=== PATIENT | female | born 1960 | race Caucasian/White ===

== ENCOUNTER 2018-06-03 15:16 | Observation (INO) | payer OTHER ==
[~2018-06-03] VITALS: Ht 170.2 cm; Wt 59.0 kg
[~2018-06-03 15:16] MED LIST: ACETAMINOPHEN-1 EAC1 PO; AUGMENTIN 875875 MG PO; CIPRO500 MG PO; CIPROFLOXACIN500 M1 PO; CIPROFLOXACIN500 M3 PO; CLEOCIN HCL150 M1 PO; CLEOCIN HCL150 MG PO; CLONAZEPAM 1 MG1 M1 NG; CYCLOBENZAPRINE; DESYREL; FLAGYL500 MG PO; HYDROCODONE-AP1 EAC6 PO; INDERAL LA120 MG PO; NOHOMEMEDICATIONS; NORCO 5-325 TA1 EAC1 PO; NORCO 5-325 TA1 EACH PO; NYSTATIN 100,0015 G1 TP; PENICILLIN V P500 MG PO; PROTONIX40 MG PO; SENNA-DOCUSATE1 EACH PO; SEROQUEL 25 MG25 MG PO; TRAMADOL 50 MG50 MG PO; ZANTAC; ZOFRAN 4 MG ORAL4 M1 DIS; ZOFRAN ODT4 MG PO; ZOLOFT
[2018-06-03 15:20] VITALS: BP 141/97
[2018-06-03 15:43] LABS: ABSOLUTE EOSINOPHILS 0.1 thou/uL (0.0-0.7); ABSOLUTE LYMPHOCYTES 2.1 thou/uL (0.8-5.3); ABSOLUTE MONOCYTES 1.1 thou/uL (0.0-1.2); ABSOLUTE NEUTROPHILS 12.4 thou/uL (1.6-8.1); BASOPHILS 0.3 %; EOSINOPHILS 0.8 %; HEMATOCRIT 34.3 % (37.0-47.0); HEMOGLOBIN 11.3 gm/dL (12.0-15.0); LYMPHOCYTES 13.3 %; MCH 29.7 pg (26.0-34.0); MCHC 33.1 g/dL (28.0-37.0); MCV 89.8 fL (80.0-100.0); MONOCYTES 6.9 %; MPV 7.4 fl. (7.2-11.1); NUCLEATED RBCS 0 /100WBC; PLATELET COUNT* 604 thou/uL (150-400); POLYS 78.7 %; RBC 3.82 mil/uL (4.20-5.00); RDW-CV 13.7 % (10.5-14.5); WBC 15.7 thou/uL (4.0-11.0)
[2018-06-03 15:54] LABS: ANION GAP 8 mmol/L (7-16); BUN 14 mg/dL (7-18); CALCIUM 8.4 mg/dL (8.5-10.1); CHLORIDE 96 mmol/L (98-107); CO2 29 mmol/L (21-32); GLUCOSE 110 mg/dL (70-99); POTASSIUM 3.9 mmol/L (3.5-5.1); SODIUM 133 mmol/L (136-145)
[2018-06-03 16:04] LABS: ALBUMIN 3.5 g/dL (3.4-5.0); ALKALINE PHOSPHATASE 139 U/L (46-116); LIPASE 90 U/L (73-393); MAGNESIUM 2.1 mg/dL (1.8-2.4); NT-PRO BRAIN NAT PEPTIDE 1101 pg/mL (<300); SGOT 57 U/L (15-37); SGPT 43 U/L (30-65); TOTAL BILIRUBIN 0.5 mg/dL (<0.1-1.0); TOTAL PROTEIN 8.2 g/dL (6.4-8.2); TROPONIN-I LEVEL <0.06 ng/mL (<0.06)
--- NOTE | 2018-06-03 18:01 | EKG ---
[place] [address] ELECTROCARDIOGRAM REPORT Name: NERY QUINONEZ Room: [place] [address] ADM IN [facility].#: [id number] Admission: 06/03/18 Attend Phys: Miguel Echeverria MD Discharge: Date of : 60 Report #: [id number] THIS REPORT FOR: //name// 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1960 Requested By: Neri Smith Order Number: [id number] MD: See Mandujano Measurements Intervals [place] Rate: 98 P: 71 IN: 154 QRS: 55 QRSD: 81 T: -45 QT: 350 QTc: 447 Interpretive Statements Sinus rhythm Borderline T abnormalities, diffuse leads Compared to ECG 07/24/2015 11:21:04 Prolonged QT interval no longer present T-wave abnormality still present Electronically Signed On 06-03-2018 18:00:44 CDT by See Mandujano [email or web address] <ELECTRONICALLY SIGNED> By: See Mandujano MD, FACC 06/03/18 1800 1520 1520 See Mandujano MD, [facility] /EPI
[2018-06-03 18:38] VITALS: BP 106/74
[2018-06-03 18:40] VITALS: BP 106/74
[2018-06-03 19:22] LABS: % SATURATION 10 % (20-39); IRON 21 ug/dL (50-175)
[2018-06-03 20:00] VITALS: BP 94/60
[2018-06-04] VITALS: BP 91/45
[2018-06-04 04:00] VITALS: BP 100/56
[2018-06-04 04:39] LABS: ABSOLUTE EOSINOPHILS 0.3 thou/uL (0.0-0.7); ABSOLUTE LYMPHOCYTES 1.6 thou/uL (0.8-5.3); BASOPHILS 0.2 %; EOSINOPHILS 1.8 %; HEMOGLOBIN 9.6 gm/dL (12.0-15.0); MCH 29.7 pg (26.0-34.0); MCHC 33.2 g/dL (28.0-37.0); MCV 89.5 fL (80.0-100.0); MONOCYTES 6.8 %; MPV 7.6 fl. (7.2-11.1); NUCLEATED RBCS 0 /100WBC; POLYS 80.2 %; RBC 3.24 mil/uL (4.20-5.00); RDW-CV 13.6 % (10.5-14.5); WBC 14.9 thou/uL (4.0-11.0)
[2018-06-04 04:41] LABS: PLATELET COUNT* 464 thou/uL (150-400)
[2018-06-04 05:44] LABS: CALCIUM 7.9 mg/dL (8.5-10.1); CREATININE 1.1 mg/dL (0.6-1.3); POTASSIUM 4.4 mmol/L (3.5-5.1)
--- NOTE | 2018-06-04 05:45 | NUR ---
PT COMPLAINS OF PAIN IN CHEST, GIVEN MEDICATIONS WITH PARTIAL RELIEF NOTED. PT REPORTED NAUSEA GIVEN MEDICATION RELIEF NOTED. PT SR ON THE MONTIOR. ADLIB. VITALS WNL. SEE MAR. SEE CHARTING. HOURLY ROUNDING FOR SAFETY.
[2018-06-04] MEDS ORDERED: COLCHICINE0.6 MG PO (08:14)
[2018-06-04] MEDS ORDERED: PEPCID20 MG PO (08:14)
[2018-06-04] MEDS ORDERED: IBUPROFEN 200200 M1 PO (08:14)
[2018-06-04 08:33] VITALS: BP 109/66
--- NOTE | 2018-06-04 10:52 | NUR ---
ASSUMED PT CARE AT 0730, MARY ANN WONG DONE CHARTED. PT A/O X4, IS VERY ANXIOUS AND FRUSTRAITED THAT HER PAIN IS NOT WELL CONTROLLED, PT NPO THIS AM FOR ABDOMINAL CT, SHE IS NOT HAPPY WITH THIS. PT C/O PAIN IN CHEST AND LEFT SHOULDER. PAIN MEDS GIVEN PER DEC. PT UP AD MARY ELLEN IN ROOM. MAY DC HOME TODAY PENDING TEST RESULTS. WILL CONTINUE TO MONITOR.
[2018-06-04] MEDS ORDERED: NORCO 7.5-3251 EACH PO (11:39)
[2018-06-04 11:42] VITALS: BP 109/66
[2018-06-04 11:56] VITALS: BP 113/79
--- NOTE | 2018-06-04 14:54 | NUR ---
Pt asleep when CM went to assess, will f/u later
--- NOTE | 2018-06-04 15:44 | 2DMMODE ---
[place] [address] 2 D/M-MODE ECHOCARDIOGRAM Name: NERY QUINONEZ Room: [address] Gavin#: [id number] Admission: 06/03/18 Attend Phys: Miguel Echeverria, Discharge: Date of : 60 Date of Service: 06/04/18 1544 Report #: [id number] THIS REPORT FOR: //name// APPROVED REPORT Study performed: 06/04/2018 10:33:23 EXAM: Comprehensive 2D, Doppler, and color-flow Echocardiogram Patient Location: In-Patient Room #: 222 Status: routine BSA: 1.69 HR: 77 bpm BP: 109/66 mmHg Rhythm: NSR Other Information Study Quality: Good Indications Pericardial Effusion 2D Dimensions LVEF(%): 63.92 (>50%) IVSd: 8.06 (7-11mm) LVOT Diam: 19.21 (18-24mm) LVDd: 33.60 mm PWd: 9.26 (7-11mm) Ascending Ao: 26.00 (22-36mm) LVDs: 22.23 (25-40mm) Aortic Root: 25.87 mm Nassar's LVEF: 63.92 % Volumes Left Atrial Volume (Systole) LA ESV Index: 20.50 mL/m2 Aortic Valve AoV Peak Jamarcus.: 1.43 m/s AO Peak Gr.: 8.23 mmHg LVOT Max P.27 mmHg AO Mean Gr.: 4.71 mmHg LVOT Mean P.16 mmHg LVOT Max V: 0.75 m/s AO V2 VTI: 27.21 cm LVOT Mean V: 0.50 m/s LETICIA (VTI): 1.82 cm2 LVOT V1 VTI: 17.12 cm AI Anderson: 2.59 m/s2 AI PHT: 437.35 [place] [address] 2 D/M-MODE ECHOCARDIOGRAM Name: CRISTIANO,NERY A Room: [address]#: [id number] Admission: 06/03/18 Attend Phys: Miguel Echeverria, Discharge: Date of : 60 Date of Service: 06/04/18 1544 Report #: [id number] Mitral Valve E/A Ratio: 1.08 MV Decel. Time: 244.57 ms MV E Max Jamarcus.: 1.16 m/s MV PHT: 70.93 ms MVA (PHT): 3.10 cm2 TDI E/Lateral E': 10.55 E/Medial E': 10.55 Medial E' Jamarcus.: 0.11 m/s Lateral E' Jamarcus.: 0.11 m/s Pulmonary Valve PV Peak Jamarcus.: 0.70 m/s PV Peak Gr.: 1.98 mmHg Tricuspid Valve RAP Estimate: 10.00 mmHg TR Peak Gr.: 20.11 mmHg RVSP: 30.11 mmHg PA Pressure: 30.11 mmHg Left Ventricle The left ventricle is normal size. There is normal LV segmental wall motion. There is normal left ventricular wall thickness. Left ventricular systolic function is normal. The left ventricular ejection fraction is within the normal range. LVEF is 60-65%. The left ventricular diastolic function is normal. Right Ventricle The right ventricle is normal size. The right ventricular systolic function is normal. Atria The left atrium size is normal. The right atrium size is normal. Aortic Valve Mild aortic valve sclerosis. Mild aortic regurgitation. No hemodynamically significant valvular aortic stenosis. Mitral Valve The mitral valve is normal in structure. Mild mitral regurgitation. No evidence of mitral valve stenosis. Tricuspid Valve The tricuspid valve is normal in structure. Mild tricuspid [place] [address] 2 D/M-MODE ECHOCARDIOGRAM Name: NERY QUINONEZ Room: [address] MKimmyRKimmy#: [id number] Admission: 06/03/18 Attend Phys: Miguel Echeverria, Discharge: Date of : 60 Date of Service: 06/04/18 1544 Report #: [id number] Pulmonic Valve The pulmonary valve is normal in structure. There is no pulmonic valvular regurgitation. Great Vessels The aortic root is normal in size. IVC is normal in size and collapses <50% with inspiration. Pericardium Moderate circumferential pericardial effusion. <Conclusion> The left ventricle is normal size. There is normal left ventricular wall thickness. Left ventricular systolic function is normal. The left ventricular ejection fraction is within the normal range. LVEF is 60-65%. The left ventricular diastolic function is normal. The right ventricle is normal size. The left atrium size is normal. Mild aortic valve sclerosis. Mild aortic regurgitation. No hemodynamically significant valvular aortic stenosis. The mitral valve is normal in structure. Mild mitral regurgitation. The tricuspid valve is normal in structure. Mild tricuspid regurgitation. IVC is normal in size and collapses <50% with inspiration. Moderate circumferential pericardial effusion. There is normal LV segmental wall motion. <ELECTRONICALLY SIGNED> By: Chu Colon MD, FACC 06/04/18 1544 1544 1544 Chu Colon MD, FACC /INF
[2018-06-04 16:38] VITALS: BP 114/61
--- NOTE | 2018-06-05 14:41 | NUR ---
RESIDENTIAL TECH RECIEVED A CONSULT TO [facility] INCLUDING RF TO PTS PCP. RESIDENTIAL TECH SPOKE TO DORA TO DISCUSS AND SHE STATES ' I CAN NOT GO TO ANOTHER DOCTOR RIGHT NOW. I DON'T HAVE INSURANCE AND YOU ALL KNOW THAT. I DON'T HAVE ANY MONEY AND CAN'T AFFORD TO PAY THEM TO SEE ME RIGHT NOW. WHEN I FIND A DOCTOR I WILL LET YOU ALL KNOW!' DISCHARGE PLANNNER ATTEMPTED TO INFORM PATIENT COMMUNTIY RESOURCES AVAILABLE IN THE AREA, BUT UNABLE TO COMPLETE THE CONVERSATION PATIENT HUNG UP THE PHONE. MULTIPLE ATTEMPTS MADE TO CONTACT PATIENT TO DISCUSS FURTHER, AND PATIENT DID NOT ANSWER. CM WILL REMAIN AVIALABLE TO ASSIST AND FOLLOW NEEDED.
[2018-06-09 10:06] LABS: ANA INTERPRETATION Negative (Negative)
== END 2018-06-04 17:30 | disposition home or self-care (01) ==
LOC: M.ERS 15:16 → M.2W 17:37 → M.TBA-ER 17:37 → M.2W 18:35
PROVIDERS: Emergency Medicine Emergency Medical Services; ADMIT Internal Medicine
DX: I30.9 Acute pericarditis, unspecified (principal); R65.10 Systemic inflammatory response syndrome (SIRS) of non-infectious origin without acute organ dysfunction; F31.9 Bipolar disorder, unspecified; F41.9 Anxiety disorder, unspecified; D64.9 Anemia, unspecified; D47.3 Essential (hemorrhagic) thrombocythemia; I77.4 Celiac artery compression syndrome; F17.210 Nicotine dependence, cigarettes, uncomplicated